=== PATIENT | female | born 1945 | race Caucasian/White ===

== ENCOUNTER 2023-05-03 22:36 | Emergency (ER) | payer MEDICARE ==
[2023-05-03] MEDS ORDERED: Calcium Chloride 1 GM/10 ML Abboject SYRINGE ONE (22:41)
[2023-05-03] MEDS ORDERED: Amiodarone 150 MG/3 ML VIAL ONE (22:41)
[2023-05-03] MEDS ORDERED: EPINEPHrine 1 MG/10 ML Abboject SYRINGE ONE (22:41)
[2023-05-03 23:31] LABS: #Basophils 0.1 thou/uL (0.0-0.2); #Eosinphils 0.5 thou/uL (0.0-0.7); #Monocytes 1.1 thou/uL (0.11-0.59); #Neutrophils 6.2 thou/uL (1.40-6.50); %Basophils 0.6 % (0.0-1.0); %Eosinophils 3.7 % (0.0-10.0); %Lymphocytes 35.9 % (21.0-51.0); %Monocytes 7.9 % (0.0-10.0); %Neutrophils 45.2 % (42.0-75.0); Hematocrit 33.1 % (36.0-47.0); Hemoglobin 9.9 g/dL (12.0-16.0); Mean Corpuscular HGB CONC 29.9 g/dL (32.0-36.0); Mean Corpuscular Hemoglobin 29.9 pg (27.0-31.0); Mean Platelet Volume 10.5 fL (7.4-10.4); Platelet Count 207 10x3/uL (130-400); RBC Distribution Width 18.6 % (11.5-14.5); Red Blood Cell (RBC) Count 3.31 mill/uL (4.20-5.40); White Blood Cell (WBC) Count 13.6 10x3/uL (4.8-10.8)
[2023-05-04 00:04] LABS: Troponin I 0.018 ng/mL (< 0.028)
[2023-05-04 00:15] LABS: Albumin 3.3 g/dL (3.4-4.8)
[2023-05-04 00:17] LABS: Calcium 8.3 mg/dL (7.8-10.44); Chloride 106 mmol/L (98-107); Potassium 5.9 mmol/L (3.5-5.1); Sodium 134 mmol/L (136-145)
[2023-05-04 00:18] LABS: Glucose 264 mg/dL (83-110); Protein, Total 6.3 g/dL (5.8-8.1)
[2023-05-04 00:19] LABS: Anion Gap 23 mmol/L (10-20); Carbon Dioxide 11 mmol/L (23-31)
[2023-05-04 00:20] LABS: Bilirubin, Total 0.4 mg/dL (0.2-1.2)
[2023-05-04 00:21] LABS: Alkaline Phosphatase 122 U/L (40-110); Calc. Creatinine Clearance 0 mL/min (70-130); Estimated GFR 26
[2023-05-04 00:22] LABS: BUN (Urea Nitrogen) 26 mg/dL (9.8-20.1)
[2023-05-04 00:23] LABS: AST (SGOT) 115 U/L (5-34)
[2023-05-04 00:24] LABS: ALT (SGPT) 95 U/L (8-55)
== END 2023-05-03 22:58 | disposition expired ==
LOC: ERS 22:36
DX: I46.9 Cardiac arrest, cause unspecified (principal); I13.0 Hypertensive heart and chronic kidney disease with heart failure and stage 1 through stage 4 chronic kidney disease, or unspecified chronic kidney disease; I50.9 Heart failure, unspecified; N18.4 Chronic kidney disease, stage 4 (severe); E11.22 Type 2 diabetes mellitus with diabetic chronic kidney disease
CPT/HCPCS: 36680; 80053; 84484; 85025; 92950; 94760; 96374; J0171; J0282